=== PATIENT | female | born 1950 | race Caucasian/White ===

== ENCOUNTER 2023-02-12 18:43 | Emergency (ER) | payer MEDICARE, OTHER ==
[2023-02-12] MEDS ORDERED: TETANUS/DIPHTHERIA/PERTUSSIS 0.5 ML SYRINGE IM ONE (18:53)
[2023-02-12 18:58] VITALS: BP 157/84; O2SAT 98
--- NOTE | 2023-02-12 19:12 | ED Physician Documentation ---
History of Present Illness - Stated complaint Stated Complaint: RT FOOT INJ - Chief complaint Chief Complaint: Ext Problem - History obtained from History obtained from: Patient - History of Present Illness Timing: Today Pain level max: 0 Pain level now: 0 - Additonal information Additional information: 72-year-old female who was wearing boots outside when she excellently stepped on a nail. Tetanus is not up-to-date. 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 No other injuries. Patient is here requesting a tetanus shot. PD PAST MEDICAL HISTORY - Past Medical History Cardiovascular: Hypertension Other Past Medical History: Raynauds arthritis - Past Surgical History Past Surgical History: Yes Ortho: Hip replacement, Carpal Tunnel surgery /WINDOW TINTER: section, Hysterectomy HEENT: Tonsil/Adenoidectomy - Present Medications Home Medications: Ambulatory Orders Medication Instructions Recorded Confirmed Amlodipine Besylate [Norvasc] 10 mg PO DAILY 02/12/23 02/12/23 Metoprolol Tartrate [Lopressor] 25 mg PO BID 02/12/23 02/12/23 - Allergies Allergies/Adverse Reactions: Allergies Allergy/AdvReac Type Severity Reaction Status Date / Time acetaminophen [From Tylox] Allergy Hallucinati Verified 02/12/23 18:47 ons cephalexin [From Keflex] Allergy Rash Verified 02/12/23 18:47 latex Allergy Unknown Verified 02/12/23 18:47 oxycodone [From Tylox] Allergy Hallucinati Verified 02/12/23 18:47 ons prochlorperazine Allergy Anaphylaxis Verified 02/12/23 18:47 [From Compazine] - Social History Does the pt smoke?: No Smoking Status: Never smoker - Immunizations Immunizations are current?: No Immunizations: TDAP current <10years PD ED PE NORMAL - Vitals Vital signs reviewed: Yes - General General: Alert and oriented X 3, No acute distress - Derm Derm: Warm and dry - Extremities Extremities: Other (Small puncture wound to the plantar aspect of the right foot, midfoot.) - Neuro Neuro: Alert and oriented X 3 Results - Vitals Vitals: Vital Signs - 24 hr 02/12/23 18:47 Temperature 36.7 C Heart Rate 84 Respiratory 16 Rate Blood Pressure 157/84 H O2 Saturation 98 Oxygen O2 Source Room air PD Medical Decision Making - ED course Complexity details: considered differential, d/w patient ED course: 72-year-old female with a plantar puncture wound. Counseled regarding signs of infection. She is not diabetic. Tdap given. Patient counseled regarding signs and symptoms for which I believe and urgent re-evaluation would be necessary. Patient with good understanding of and agreement to plan and is comfortable going home at this time This document was made in part using voice recognition software. While efforts are made to proofread this document, sound alike and grammatical errors may occur. Departure - Departure Disposition: 01 Home, Self Care Clinical Impression: Puncture wound of plantar aspect of foot Qualifiers: Encounter type: initial encounter Laterality: right Qualified Code(s): S91.331A - Puncture wound without foreign body, right foot, initial encounter Condition: Good Instructions: ED Wound Puncture Foot Follow-Up: [facility] [Primary Care Provider] - Within 1 week Comments: You were given a tetanus shot today. Please follow-up with your doctor as needed for further care. Please return if you notice redness, swelling or drainage from the wound. Forms: PCP List Discharge Date/Time: 02/12/23 19:26
== END 2023-02-12 19:26 | disposition home or self-care (01) ==
LOC: ED 18:43
DX: S91.331A Puncture wound without foreign body, right foot, initial encounter (principal); W22.8XXA Striking against or struck by other objects, initial encounter; X58.XXXA Exposure to other specified factors, initial encounter; Z23 Encounter for immunization
CPT/HCPCS: 90471; 99282